=== PATIENT | male | born 1955 | race African-American/Black ===

== ENCOUNTER 2018-01-21 08:29 | Inpatient (IN) | payer MEDICAID ==
[~2018-01-21] VITALS: Ht 180.3 cm; Wt 103.4 kg
[~2018-01-21 08:29] MED LIST: ALBU2.5V13 IH; HYDR-3933 PO; IBUP-2028 PO; METF500T6 PO; METH500T PO; PARO-66 PO; SIMV40TA5 PO; TRAM50TA3 PO
[2018-01-21] MEDS ORDERED: ASPIRIN 81MG TABLET PO ONE (09:00)
[2018-01-21 09:22] LABS: CHLORIDE 107 mEq/L (98-107)
[2018-01-21 09:34] LABS: BASOPHILS % 1.4 % (0.0-2.0); EOSINOPHILS % 2.5 % (0.0-5.0); HEMATOCRIT. 43.8 % (42.0-52.0); HEMOGLOBIN. 14.9 g/dL (14.0-18.0); LYMPHOCYTES % 36.2 % (20.0-50.0); MEAN CORPUSCULAR HEMOGLOBIN 28.4 pg (28.0-32.0); MEAN CORPUSCULAR VOLUME 83.8 fL (80.0-94.0); MEAN PLATELET VOLUME 8.8 fl (7.4-10.4); MONOCYTES % 8.5 % (2.0-8.0); NEUTROPHILS % 51.4 % (40.0-76.0); PLATELET 204 x1000/uL (130-400); RED BLOOD CELL COUNT 5.23 mill/uL (4.7-6.1); RED CELL DISTRIBUTION WIDTH 13.7 % (11.6-14.6)
[2018-01-21 11:25] VITALS: BP 134/67
[2018-01-21] MEDS ORDERED: ENOXAPARIN 40MG/0.4ML SYR SUBCUT SCH (11:30)
[2018-01-21] MEDS ORDERED: CLONIDINE 0.1MG TABLET PO PRN (11:30)
[2018-01-21] MEDS ORDERED: DIPHENHYDRAMINE 50MG/ML VIAL IV PRN (11:30)
[2018-01-21] MEDS ORDERED: DOCUSATE SODIUM 100MG CAPSULE PO PRN (11:30)
[2018-01-21] MEDS ORDERED: ONDANSETRON HCL 4MG/2ML INJ IV PRN (11:30)
[2018-01-21] MEDS ORDERED: NA PHOS,M-B/NA PHOS,DI-BA ENEMA 118ML PR PRN (11:30)
[2018-01-21] MEDS ORDERED: NITROGLYCERIN 0.4MG TABLET SL SL PRN (11:30)
[2018-01-21] MEDS ORDERED: IPRATROPIUM/ALBUTEROL 0.5-3(2.5)MG/3ML NEB INH PRN (11:30)
[2018-01-21] MEDS ORDERED: ACETAMINOPHEN 325MG TABLET PO PRN (11:30)
[2018-01-21] MEDS ORDERED: GUAIFENESIN 200MG/10ML SUGAR FREE UDC PO PRN (11:30)
[2018-01-21] MEDS ORDERED: MAGNESIUM/ALUMINUM HYDROXIDE/SIMETHICONE 30ML UDC PO PRN (11:30)
[2018-01-21] MEDS ORDERED: KETOROLAC 15MG/ML VIAL IV PRN (11:30)
[2018-01-21] MEDS ORDERED: LORAZEPAM 0.5MG TABLET PO PRN (11:30)
[2018-01-21 13:21] VITALS: BP 134/67
[2018-01-21] MEDS: FAMOTIDINE 20MG TABLET PO SCH ×2 (13:58→21:08)
[2018-01-21] MEDS: DILTIAZEM HCL 60MG TABLET PO SCH ×2 (13:58→18:54)
[2018-01-21] MEDS: ENOXAPARIN 30MG/0.3ML SYR SUBCUT SCH ×2 (13:59→21:10)
[2018-01-21 16:00] VITALS: BP 114/77
[2018-01-21 16:56] LABS: CREATINE KINASE MB FRACTION 4.2 ng/mL (0.5-3.6)
[2018-01-21 20:00] VITALS: BP 103/59
[2018-01-21 20:19] LABS: *BARBITURATES SCREEN URINE NEGATIVE (NEGATIVE)
[2018-01-21 20:20] LABS: *AMPHETAMINES SCREEN URINE NEGATIVE (NEGATIVE); *COCAINE SCREEN URINE PRESUMTIVE POSITIVE (NEGATIVE); CANNABINOID URINE SCREEN NEGATIVE (NEGATIVE); METHADONE URINE SCREEN NEGATIVE (NEGATIVE); OPIATES URINE SCREEN PRESUMTIVE POSITIVE (NEGATIVE); PHENCYCLIDINE URINE SCREEN NEGATIVE (NEGATIVE)
[2018-01-21 20:21] LABS: *BENZODIAZEPINES SCREEN URINE NEGATIVE (NEGATIVE)
[2018-01-21] MEDS ORDERED: ATORVASTATIN CALCIUM 20MG TABLET PO SCH (21:00)
[2018-01-21] MEDS ORDERED: ZOLPIDEM TARTRATE 5MG TABLET PO PRN (21:00)
[2018-01-22] VITALS: BP 122/79
[2018-01-22 00:32] LABS: CREATINE KINASE MB FRACTION 3.6 ng/mL (0.5-3.6)
[2018-01-22 04:00] VITALS: BP 113/78
[2018-01-22] MEDS: DILTIAZEM HCL 60MG TABLET PO SCH ×3 (06:00→11:40)
[2018-01-22 08:00] VITALS: BP 112/78
[2018-01-22] MEDS ORDERED: ASPIRIN 325MG EC TABLET PO SCH (09:00)
[2018-01-22] MEDS: FAMOTIDINE 20MG TABLET PO SCH (09:55)
[2018-01-22] MEDS: ENOXAPARIN 30MG/0.3ML SYR SUBCUT SCH (09:55)
[2018-01-22] MEDS ORDERED: FUROSEMIDE 40MG/4ML VIAL IVP NR (10:45)
[2018-01-22] MEDS ORDERED: LIP40 MT (11:42)
[2018-01-22 11:43] VITALS: BP 130/75
[2018-01-22] MEDS ORDERED: ASPI-1159 MT (11:43)
[2018-01-22 12:00] VITALS: BP 133/86
== END 2018-01-22 13:35 | disposition home or self-care (01) | DRG 816 ==
LOC: ER 08:42 → 5WST 09:50 → ENRESERV 10:32
PROVIDERS: ADMIT Internal Medicine; ATTEND Internal Medicine
DX: T40.5X1A Poisoning by cocaine, accidental (unintentional), initial encounter (principal); N17.0 Acute kidney failure with tubular necrosis; E78.5 Hyperlipidemia, unspecified; E11.9 Type 2 diabetes mellitus without complications; I10 Essential (primary) hypertension; J45.909 Unspecified asthma, uncomplicated; F17.210 Nicotine dependence, cigarettes, uncomplicated; E78.00 Pure hypercholesterolemia, unspecified; F14.10 Cocaine abuse, uncomplicated; Y92.89 Other specified places as the place of occurrence of the external cause; Z86.73 Personal history of transient ischemic attack (TIA), and cerebral infarction without residual deficits; Z91.14 Patient's other noncompliance with medication regimen; Z79.899 Other long term (current) drug therapy; Z71.6 Tobacco abuse counseling; Z71.51 Drug abuse counseling and surveillance of drug abuser
CPT/HCPCS: 36415; 71045; 80053; 80061; 80305; 82550; 82553; 83036; 83880; 84484; 85025; 93005; 93970; 99285; J1650; J1885; J1940

== ENCOUNTER 2018-01-31 12:40 | Inpatient (IN) | payer MEDICAID ==
[~2018-01-31] VITALS: Ht 180.3 cm; Wt 103.4 kg
[~2018-01-31 12:40] MED LIST changes: +ASPI-1159 MT; +LIP40 MT; +METF-414 PO; -METF500T6 PO
[2018-01-31] MEDS ORDERED: ALBUTEROL (0.083%) 2.5MG/3ML NEB HHN STA (13:14)
[2018-01-31] MEDS ORDERED: IPRATROPIUM BROMIDE (0.02%) 0.5MG/2.5ML NEB HHN STA (13:14)
[2018-01-31] MEDS ORDERED: ASPIRIN 325MG TABLET PO ONE (13:30)
[2018-01-31] MEDS ORDERED: ASPIRIN 81MG TABLET PO ONE (14:15)
[2018-01-31] MEDS ORDERED: MORPHINE SULFATE 4 MG/ML CPJ (NOT FOR IM USE) IV ONE (14:45)
[2018-01-31 14:53] LABS: BASOPHILS % 1.1 % (0.0-2.0); EOSINOPHILS % 1.9 % (0.0-5.0); HEMOGLOBIN. 14.3 g/dL (14.0-18.0); LYMPHOCYTES % 26.8 % (20.0-50.0); MEAN CORPUSCULAR HEMOGLOBIN 28.2 pg (28.0-32.0); MEAN CORPUSCULAR VOLUME 84.6 fL (80.0-94.0); MEAN PLATELET VOLUME 9.1 fl (7.4-10.4); MONOCYTES % 8.8 % (2.0-8.0); NEUTROPHILS % 61.4 % (40.0-76.0); PLATELET 206 x1000/uL (130-400); RED BLOOD CELL COUNT 5.08 mill/uL (4.7-6.1); RED CELL DISTRIBUTION WIDTH 13.8 % (11.6-14.6)
[2018-01-31 15:00] LABS: INR 1.1; PROTHROMBIN TIME 11.3 sec (9.1-11.1)
[2018-01-31 15:05] LABS: CHLORIDE 111 mEq/L (98-107)
[2018-01-31] MEDS ORDERED: FUROSEMIDE 40MG/4ML VIAL IVP ONE (15:30)
[2018-01-31 20:00] VITALS: BP 140/95
[2018-01-31] MEDS ORDERED: ACETAMINOPHEN 325MG TABLET PO PRN (21:15)
[2018-01-31] MEDS ORDERED: HYDROCODONE/ACETAMINOPHEN 5/325MG TABLET PO PRN (21:15)
[2018-01-31] MEDS ORDERED: ONDANSETRON HCL 4MG/2ML INJ IV PRN (21:15)
[2018-01-31] MEDS ORDERED: ACETAMINOPHEN 650MG/20.3ML UDC GT PRN (21:15)
[2018-01-31] MEDS ORDERED: NA PHOS,M-B/NA PHOS,DI-BA ENEMA 118ML PR PRN (21:15)
[2018-01-31] MEDS ORDERED: IPRATROPIUM/ALBUTEROL 0.5-3(2.5)MG/3ML NEB INH PRN (21:15)
[2018-01-31] MEDS ORDERED: CLONIDINE 0.1MG TABLET PO PRN (21:15)
[2018-01-31] MEDS ORDERED: DOCUSATE SODIUM 100MG CAPSULE PO PRN (21:15)
[2018-01-31] MEDS ORDERED: MAGNESIUM/ALUMINUM HYDROXIDE/SIMETHICONE 30ML UDC PO PRN (21:15)
[2018-01-31] MEDS ORDERED: GUAIFENESIN 200MG/10ML SUGAR FREE UDC PO PRN (21:15)
[2018-01-31] MEDS ORDERED: ACETAMINOPHEN 650MG SUPP PR PRN (21:15)
[2018-01-31] MEDS ORDERED: DIPHENHYDRAMINE 50MG/ML VIAL IV PRN (21:15)
[2018-01-31] MEDS ORDERED: NITROGLYCERIN 0.4MG TABLET SL SL PRN (21:30)
[2018-01-31] MEDS ORDERED: DEXTROSE 50% WATER 50ML SYRINGE IV PRN (21:30)
[2018-01-31] MEDS: ASPIRIN 81MG TABLET PO SCH (21:58)
[2018-01-31] MEDS: HYDROCODONE/ACETAMINOPHEN 10/325MG TABLET PO PRN (22:00)
[2018-01-31] MEDS: METHOCARBAMOL 500MG TABLET PO SCH (22:00)
[2018-01-31] MEDS: ENOXAPARIN 30MG/0.3ML SYR SUBCUT SCH (22:01)
[2018-01-31] MEDS: INSULIN LISPRO 100 UNITS/ML SUBCUT SCH (22:59)
[2018-01-31] MEDS: SODIUM CHLORIDE 0.9% INJ 3ML FLUSH IVF SCH (22:59)
[2018-01-31] MEDS: BLOOD SUGAR DIAGNOSTIC STRIP TEST SCH (22:59)
[2018-01-31 23:17] VITALS: BP 140/95
[2018-02-01] VITALS: BP 153/97
[2018-02-01] MEDS ORDERED: PNEUMOCOCCAL 23-VAL P-SAC VAC 0.5 ML IM ONE (01:00)
[2018-02-01] MEDS: HYDROCODONE/ACETAMINOPHEN 10/325MG TABLET PO PRN ×4 (02:58→21:33)
[2018-02-01 04:00] VITALS: BP 126/86
[2018-02-01] MEDS: SODIUM CHLORIDE 0.9% INJ 3ML FLUSH IVF SCH ×3 (07:01→21:26)
[2018-02-01 07:55] LABS: CLARITY URINE CLEAR (CLEAR); COLOR URINE YELLOW (YELLOW); KETONES URINE TRACE (NEGATIVE); LEUKOCYTE ESTERASE URINE NEGATIVE (NEGATIVE); NITRITE URINE NEGATIVE (NEGATIVE); OCCULT BLOOD URINE NEGATIVE (NEGATIVE); PROTEIN URINE NEGATIVE (NEGATIVE); SPECIFIC GRAVITY URINE 1.024 (1.005-1.030); UROBILINOGEN URINE 0.2 E.U./dL (0.2-1.0)
[2018-02-01 07:56] LABS: BASOPHILS % 1.5 % (0.0-2.0); EOSINOPHILS % 3.4 % (0.0-5.0); HEMATOCRIT. 41.5 % (42.0-52.0); MEAN CORPUSCULAR HEMOGLOBIN 28.6 pg (28.0-32.0); MEAN CORPUSCULAR VOLUME 84.4 fL (80.0-94.0); MEAN PLATELET VOLUME 9.1 fl (7.4-10.4); MONOCYTES % 8.8 % (2.0-8.0); NEUTROPHILS % 44.3 % (40.0-76.0); PLATELET 195 x1000/uL (130-400); RED BLOOD CELL COUNT 4.92 mill/uL (4.7-6.1); RED CELL DISTRIBUTION WIDTH 13.8 % (11.6-14.6)
[2018-02-01 08:00] VITALS: BP 125/80
[2018-02-01 08:22] LABS: *AMPHETAMINES SCREEN URINE NEGATIVE (NEGATIVE); *BARBITURATES SCREEN URINE NEGATIVE (NEGATIVE); *BENZODIAZEPINES SCREEN URINE NEGATIVE (NEGATIVE); *COCAINE SCREEN URINE PRESUMTIVE POSITIVE (NEGATIVE)
[2018-02-01 08:23] LABS: CANNABINOID URINE SCREEN NEGATIVE (NEGATIVE); METHADONE URINE SCREEN NEGATIVE (NEGATIVE); OPIATES URINE SCREEN PRESUMTIVE POSITIVE (NEGATIVE); PHENCYCLIDINE URINE SCREEN NEGATIVE (NEGATIVE)
[2018-02-01] MEDS ORDERED: INFLUENZA VIRUS VACCINE(AFLURIA) 0.5ML SYR IM ONE (09:00)
[2018-02-01] MEDS: METHOCARBAMOL 500MG TABLET PO SCH ×2 (09:19→16:51)
[2018-02-01] MEDS: ASPIRIN 81MG TABLET PO SCH (09:19)
[2018-02-01] MEDS: ENOXAPARIN 30MG/0.3ML SYR SUBCUT SCH ×2 (09:20→21:25)
[2018-02-01] MEDS: FUROSEMIDE 40MG/4ML VIAL IV SCH (09:27)
[2018-02-01 10:00] LABS: CHLORIDE 106 mEq/L (98-107)
[2018-02-01 10:11] LABS: CREATINE KINASE 280 IU/L (39-308); CREATINE KINASE MB FRACTION 4.6 ng/mL (0.5-3.6)
[2018-02-01] MEDS: BLOOD SUGAR DIAGNOSTIC STRIP TEST SCH ×3 (12:20→21:37)
[2018-02-01 12:50] VITALS: BP 111/72
[2018-02-01] MEDS: INSULIN LISPRO 100 UNITS/ML SUBCUT SCH ×3 (12:50→21:00)
[2018-02-01 14:00] LABS: T4 FREE 1.18 ng/dL (0.76-1.46)
[2018-02-01 16:41] VITALS: BP 129/91
[2018-02-01] MEDS: NICOTINE 14MG PATCH TD SCH (16:51)
[2018-02-01 17:38] LABS: CREATINE KINASE MB FRACTION 4.4 ng/mL (0.5-3.6)
[2018-02-01 20:00] VITALS: BP 143/92
[2018-02-01] MEDS ORDERED: ATORVASTATIN CALCIUM 40MG TABLET PO SCH (21:00)
[2018-02-01] MEDS: IPRATROPIUM/ALBUTEROL 0.5-3(2.5)MG/3ML NEB HHN SCH (22:08)
[2018-02-02] VITALS: BP 140/90
[2018-02-02 01:11] LABS: CREATINE KINASE MB FRACTION 4.2 ng/mL (0.5-3.6)
[2018-02-02] MEDS: IPRATROPIUM/ALBUTEROL 0.5-3(2.5)MG/3ML NEB HHN SCH ×3 (02:05→13:13)
[2018-02-02 04:00] VITALS: BP 148/98
[2018-02-02] MEDS: SODIUM CHLORIDE 0.9% INJ 3ML FLUSH IVF SCH (06:19)
[2018-02-02] MEDS: BLOOD SUGAR DIAGNOSTIC STRIP TEST SCH ×2 (06:21→12:18)
[2018-02-02] MEDS: INSULIN LISPRO 100 UNITS/ML SUBCUT SCH ×2 (06:21→12:18)
[2018-02-02] MEDS: HYDROCODONE/ACETAMINOPHEN 10/325MG TABLET PO PRN ×2 (06:41→09:55)
[2018-02-02] MEDS ORDERED: LOSARTAN POTASSIUM 25 MG TABLET PO SCH (07:30)
[2018-02-02 07:47] LABS: CREATINE KINASE MB FRACTION 3.5 ng/mL (0.5-3.6)
[2018-02-02 07:58] VITALS: BP_SYST 101; BP_SYST 133; BP_DIAS 81; BP_DIAS 92
[2018-02-02] MEDS: FUROSEMIDE 40MG/4ML VIAL IV SCH (08:46)
[2018-02-02] MEDS: NICOTINE 14MG PATCH TD SCH (08:54)
[2018-02-02] MEDS: ASPIRIN 81MG TABLET PO SCH (08:54)
[2018-02-02] MEDS: METHOCARBAMOL 500MG TABLET PO SCH (08:54)
[2018-02-02] MEDS: ENOXAPARIN 30MG/0.3ML SYR SUBCUT SCH (08:57)
[2018-02-02] MEDS ORDERED: ASPIRIN 81MG TABLET PO SCH (09:00)
[2018-02-02 12:00] VITALS: BP 127/90
[2018-02-02 14:37] VITALS: BP 127/90
== END 2018-02-02 15:35 | disposition home or self-care (01) | DRG 194 ==
LOC: ER 15:20 → EDBEDREQ 15:41 → 6WST 16:01 → EDBEDREQ 16:03 → ENRESERV 17:28 → 6WST 19:00
PROVIDERS: ADMIT Family Medicine; ATTEND Family Medicine
DX: I13.0 Hypertensive heart and chronic kidney disease with heart failure and stage 1 through stage 4 chronic kidney disease, or unspecified chronic kidney disease (principal); J96.00 Acute respiratory failure, unspecified whether with hypoxia or hypercapnia; E11.22 Type 2 diabetes mellitus with diabetic chronic kidney disease; E78.00 Pure hypercholesterolemia, unspecified; I50.23 Acute on chronic systolic (congestive) heart failure; E78.5 Hyperlipidemia, unspecified; F14.10 Cocaine abuse, uncomplicated; F17.210 Nicotine dependence, cigarettes, uncomplicated; J45.909 Unspecified asthma, uncomplicated; N18.9 Chronic kidney disease, unspecified; Z83.3 Family history of diabetes mellitus; Z86.73 Personal history of transient ischemic attack (TIA), and cerebral infarction without residual deficits; Z91.14 Patient's other noncompliance with medication regimen; Z79.82 Long term (current) use of aspirin; Z79.84 Long term (current) use of oral hypoglycemic drugs; Z79.1 Long term (current) use of non-steroidal anti-inflammatories (NSAID); Z79.899 Other long term (current) drug therapy; Z71.6 Tobacco abuse counseling; E87.8 Other disorders of electrolyte and fluid balance, not elsewhere classified
CPT/HCPCS: 36415; 71045; 80061; 80305; 82550; 82553; 82962; 83036; 83880; 84439; 84443; 84484; 85379; 90686; 93005; 93306; 93970; 94640; 96374; 96375; 99285; J1650; J1940; J2270; J7030; J7620

== ENCOUNTER 2019-04-29 15:57 | Inpatient (IN) | payer MEDICAID ==
[~2019-04-29] VITALS: Ht 181.6 cm; Wt 90.7 kg
[~2019-04-29 15:57] MED LIST changes: +ACET5SOL2 PO; -ASPI-1159 MT; +ASPI-1497 MT; +FURO40TA5 MT; -HYDR-3933 PO; -IBUP-2028 PO; +LOSA25TA26 MT; +METF-815 MT; -METH500T PO; +METH500T6 MT; +POTA20TA82 PO; +SIMV-46 PO; -SIMV40TA5 PO; -TRAM50TA3 PO
[2019-04-29] MEDS ORDERED: METHYLPREDNISOLONE SOD SUCC 125 MG/2 ML VIAL IV STA (17:42)
[2019-04-29] MEDS ORDERED: MORPHINE SULFATE 4 MG/ML CPJ (NOT FOR IM USE) IV STA (17:42)
[2019-04-29] MEDS ORDERED: ONDANSETRON HCL 4MG/2ML INJ IV STA (17:42)
[2019-04-29] MEDS ORDERED: IPRATROPIUM/ALBUTEROL 0.5-3(2.5)MG/3ML NEB HHN ONE (17:45)
[2019-04-29] MEDS ORDERED: LORAZEPAM 2MG/ML CPJ IV ONE ×2 (17:45→21:00)
[2019-04-29] MEDS ORDERED: LEVOFLOXACIN 750MG PREMIX 150 ML IV ONE (17:45)
[2019-04-29 18:04] LABS: BG BASE EXCESS -2.1 mmol/L (-2.0-2.0); BG CARBOXYHEMOGLOBIN 1.8 % (0.5-1.5); BG DEOXYHEMOGLOBIN 3.8 % (0.0-5.0); BG FRACTION INSPIRED OXYGEN 28; BG HCO3 ACT 22.2 mmol/L (22.0-26.0); BG METHEMOGLOBIN 0.2 % (0.0-1.5); BG OXYGEN SATURATION 96.1 % (92.0-98.5); BG OXYHEMOGLOBIN 94.2 % (94.0-97.0); BG PCO2 36.8 mmHg (35.0-45.0); BG PH 7.399 (7.350-7.450); BG PO2 87.2 mmHg (75.0-100.0); BG SAMPLE SITE RIGHT RADIAL; BG TOTAL HEMOGLOBIN 13.6 g/dL (12.0-18.0); BG VENT MODE NASAL CANNULA
[2019-04-29 18:18] LABS: CHLORIDE 110 mEq/L (98-107)
[2019-04-29 18:19] LABS: INR 1.4; PARTIAL THROMBOPLASTIN TIME 28.9 sec (23.4-31.0); PROTHROMBIN TIME 14.5 sec (9.6-11.0)
[2019-04-29 18:20] LABS: EOSINOPHILS % 1.6 % (0.0-5.0); HEMATOCRIT. 39.8 % (42.0-52.0); HEMOGLOBIN. 13.5 g/dL (14.0-18.0); LYMPHOCYTES % 20.1 % (20.0-50.0); MEAN CORPUSCULAR HEMOGLOBIN 28.9 pg (28.0-32.0); MEAN CORPUSCULAR VOLUME 85.5 fL (80.0-94.0); MEAN PLATELET VOLUME 8.2 fl (7.4-10.4); MONOCYTES % 11.2 % (2.0-8.0); NEUTROPHILS % 66.1 % (40.0-76.0); PLATELET 214 x1000/uL (130-400); RED BLOOD CELL COUNT 4.66 mill/uL (4.7-6.1); RED CELL DISTRIBUTION WIDTH 14.7 % (11.6-14.6)
[2019-04-29 18:22] LABS: ETHANOL BLOOD < 10 mg/dL
[2019-04-29] MEDS ORDERED: FUROSEMIDE 40MG/4ML VIAL IVP ONE (20:15)
[2019-04-29 21:11] LABS: CLARITY URINE CLEAR (CLEAR); COLOR URINE YELLOW (YELLOW); KETONES URINE NEGATIVE (NEGATIVE); LEUKOCYTE ESTERASE URINE NEGATIVE (NEGATIVE); NITRITE URINE NEGATIVE (NEGATIVE); OCCULT BLOOD URINE NEGATIVE (NEGATIVE); PH URINE 7.5 (4.5-8.0); PROTEIN URINE NEGATIVE (NEGATIVE); SPECIFIC GRAVITY URINE 1.025 (1.005-1.030)
[2019-04-29 21:24] LABS: *BARBITURATES SCREEN URINE NEGATIVE (NEGATIVE)
[2019-04-29 21:25] LABS: *AMPHETAMINES SCREEN URINE NEGATIVE (NEGATIVE); *BENZODIAZEPINES SCREEN URINE NEGATIVE (NEGATIVE); *COCAINE SCREEN URINE PRESUMTIVE POSITIVE (NEGATIVE); METHADONE URINE SCREEN NEGATIVE (NEGATIVE); OPIATES URINE SCREEN NEGATIVE (NEGATIVE); PHENCYCLIDINE URINE SCREEN NEGATIVE (NEGATIVE)
[2019-04-29 21:26] LABS: CANNABINOID URINE SCREEN PRESUMTIVE POSITIVE (NEGATIVE)
[2019-04-30 00:15] VITALS: BP 148/97
[2019-04-30] MEDS ORDERED: MORPHINE SULFATE 2 MG/ML CPJ (NOT FOR IM USE) IV PRN (01:45)
[2019-04-30] MEDS ORDERED: ACETAMINOPHEN 325MG TABLET PO PRN (01:45)
[2019-04-30] MEDS ORDERED: ONDANSETRON HCL 4MG/2ML INJ IV PRN (01:45)
[2019-04-30] MEDS ORDERED: DEXTROSE 50% WATER 50ML SYRINGE IV PRN (01:45)
[2019-04-30] MEDS ORDERED: IPRATROPIUM/ALBUTEROL 0.5-3(2.5)MG/3ML NEB HHN PRN ×2 (01:45→13:00)
[2019-04-30 04:00] VITALS: BP 143/91
[2019-04-30] MEDS: IPRATROPIUM/ALBUTEROL 0.5-3(2.5)MG/3ML NEB HHN SCH ×4 (05:05→21:09)
[2019-04-30] MEDS: METHYLPREDNISOLONE SOD SUCC 40 MG/ML VIAL IV SCH ×3 (06:14→21:30)
[2019-04-30] MEDS: BLOOD SUGAR DIAGNOSTIC STRIP TEST SCH ×4 (07:34→21:30)
[2019-04-30 08:00] VITALS: BP 120/74
[2019-04-30] MEDS: METHOCARBAMOL 500MG TABLET PO SCH ×2 (08:43→16:42)
[2019-04-30] MEDS: ASPIRIN 81MG EC TABLET PO SCH (08:43)
[2019-04-30] MEDS: PAROXETINE HCL 10MG TABLET PO SCH (08:43)
[2019-04-30] MEDS: METFORMIN HCL 500MG TABLET PO SCH ×2 (08:43→17:59)
[2019-04-30] MEDS: INSULIN LISPRO 100 UNITS/ML SUBCUT SCH ×4 (08:48→21:33)
[2019-04-30] MEDS: LOSARTAN POTASSIUM 25 MG TABLET PO SCH (08:48)
[2019-04-30] MEDS ORDERED: POTASSIUM CHLORIDE 20MEQ TABLET SR PO SCH (09:00)
[2019-04-30] MEDS ORDERED: FUROSEMIDE 40MG TABLET PEG SCH (09:00)
[2019-04-30 10:52] LABS: HEMATOCRIT. 41.1 % (42.0-52.0); HEMOGLOBIN. 13.9 g/dL (14.0-18.0); MEAN CORPUSCULAR HEMOGLOBIN 29.1 pg (28.0-32.0); MEAN CORPUSCULAR VOLUME 85.9 fL (80.0-94.0); MEAN PLATELET VOLUME 8.4 fl (7.4-10.4); PLATELET 209 x1000/uL (130-400); RED BLOOD CELL COUNT 4.78 mill/uL (4.7-6.1); RED CELL DISTRIBUTION WIDTH 15.1 % (11.6-14.6)
[2019-04-30 11:04] LABS: CHLORIDE 105 mEq/L (98-107)
[2019-04-30 11:14] LABS: LDL CHOLESTEROL 96 mg/dL (5-100)
[2019-04-30 11:16] LABS: HDL CHOLESTEROL 30 mg/dL (40-59)
[2019-04-30 12:00] VITALS: BP 155/99
[2019-04-30] MEDS: NICOTINE 14MG PATCH TD SCH (13:03)
[2019-04-30 13:52] LABS: PLATELET ESTIMATE NORMAL
[2019-04-30] MEDS: ENOXAPARIN 40MG/0.4ML SYR SUBCUT SCH (14:58)
[2019-04-30 16:00] VITALS: BP 130/82
[2019-04-30] MEDS: DILTIAZEM HCL 30MG TABLET PO SCH ×2 (16:42→18:00)
[2019-04-30] MEDS: FUROSEMIDE 100MG/10ML VIAL IVP SCH (16:42)
[2019-04-30 16:54] LABS: HEPATITIS B SURFACE ANTIGEN NEGATIVE
[2019-04-30 17:23] LABS: HEPATITIS A AB IGM NEGATIVE (NEGATIVE)
[2019-04-30 20:00] VITALS: BP 143/93
[2019-04-30] MEDS ORDERED: ATORVASTATIN CALCIUM 40MG TABLET PO SCH (21:00)
[2019-04-30] MEDS: BUDESONIDE 0.5MG/2ML NEB HHN SCH (21:08)
[2019-05-01] VITALS: BP 127/70
[2019-05-01] MEDS: DILTIAZEM HCL 30MG TABLET PO SCH ×4 (00:28→17:09)
[2019-05-01] MEDS: IPRATROPIUM/ALBUTEROL 0.5-3(2.5)MG/3ML NEB HHN SCH ×5 (01:07→17:14)
[2019-05-01 04:00] VITALS: BP 147/98
[2019-05-01] MEDS: METHYLPREDNISOLONE SOD SUCC 40 MG/ML VIAL IV SCH ×2 (06:05→13:33)
[2019-05-01] MEDS: FUROSEMIDE 100MG/10ML VIAL IVP SCH ×2 (06:58→17:19)
[2019-05-01] MEDS: BLOOD SUGAR DIAGNOSTIC STRIP TEST SCH ×3 (07:46→17:35)
[2019-05-01 07:54] LABS: HEMOGLOBIN. 14.1 g/dL (14.0-18.0); MEAN CORPUSCULAR VOLUME 86.2 fL (80.0-94.0); MEAN PLATELET VOLUME 8.7 fl (7.4-10.4); PLATELET 243 x1000/uL (130-400); RED BLOOD CELL COUNT 4.88 mill/uL (4.7-6.1); RED CELL DISTRIBUTION WIDTH 15.1 % (11.6-14.6)
[2019-05-01 08:00] VITALS: BP 142/94
[2019-05-01 08:10] LABS: CHLORIDE 102 mEq/L (98-107)
[2019-05-01] MEDS: BUDESONIDE 0.5MG/2ML NEB HHN SCH (08:12)
[2019-05-01] MEDS ORDERED: POTASSIUM CHLORIDE 20MEQ TABLET SR PO SCH (09:00)
[2019-05-01 09:51] LABS: PLATELET ESTIMATE NORMAL
[2019-05-01] MEDS: ASPIRIN 81MG EC TABLET PO SCH (10:08)
[2019-05-01] MEDS: NICOTINE 14MG PATCH TD SCH (10:08)
[2019-05-01] MEDS: METFORMIN HCL 500MG TABLET PO SCH ×2 (10:09→18:35)
[2019-05-01] MEDS: LOSARTAN POTASSIUM 25 MG TABLET PO SCH (10:09)
[2019-05-01] MEDS: PAROXETINE HCL 10MG TABLET PO SCH (10:09)
[2019-05-01] MEDS: METHOCARBAMOL 500MG TABLET PO SCH ×2 (10:09→17:07)
[2019-05-01] MEDS: ENOXAPARIN 40MG/0.4ML SYR SUBCUT SCH (10:11)
[2019-05-01] MEDS: INSULIN LISPRO 100 UNITS/ML SUBCUT SCH ×3 (10:14→17:35)
[2019-05-01 12:00] VITALS: BP 125/70
[2019-05-01 16:00] VITALS: BP 104/51
[2019-05-01] MEDS ORDERED: ALBU2.5V13 IH (16:15)
[2019-05-01] MEDS ORDERED: LOSA50TA41 MT (16:15)
[2019-05-01] MEDS ORDERED: FURO-151 MT (16:15)
[2019-05-01] MEDS ORDERED: FLUT1DIS3 INH (16:15)
[2019-05-01] MEDS ORDERED: CARV12.545 MT (16:15)
[2019-05-01 17:52] VITALS: BP 104/51
== END 2019-05-01 19:30 | disposition home or self-care (01) | DRG 194 ==
LOC: ER 15:57 → 7WST 21:16 → EDBEDREQTM 21:33 → EDBEDREQ 21:35 → ENRESERV 23:24
PROVIDERS: ADMIT Internal Medicine; ATTEND Internal Medicine
DX: I11.0 Hypertensive heart disease with heart failure (principal); I27.20 Pulmonary hypertension, unspecified; E87.8 Other disorders of electrolyte and fluid balance, not elsewhere classified; E44.0 Moderate protein-calorie malnutrition; I50.23 Acute on chronic systolic (congestive) heart failure; J44.1 Chronic obstructive pulmonary disease with (acute) exacerbation; E11.9 Type 2 diabetes mellitus without complications; E78.5 Hyperlipidemia, unspecified; F12.90 Cannabis use, unspecified, uncomplicated; F14.90 Cocaine use, unspecified, uncomplicated; F17.210 Nicotine dependence, cigarettes, uncomplicated; I08.0 Rheumatic disorders of both mitral and aortic valves; I49.3 Ventricular premature depolarization; I42.0 Dilated cardiomyopathy; Z86.73 Personal history of transient ischemic attack (TIA), and cerebral infarction without residual deficits; Z79.899 Other long term (current) drug therapy; Z82.49 Family history of ischemic heart disease and other diseases of the circulatory system; Z83.3 Family history of diabetes mellitus; Z79.82 Long term (current) use of aspirin; Z79.84 Long term (current) use of oral hypoglycemic drugs; Z71.6 Tobacco abuse counseling; Z68.27 Body mass index [BMI] 27.0-27.9, adult
CPT/HCPCS: 36415; 36600; 71045; 72148; 76700; 80048; 80053; 80061; 80305; 80320; 81003; 82375; 82805; 82962; 83036; 83605; 83735; 83880; 84484; 85025; 86705; 86709; 86803; 87340; 93005; 93306; 94640; 96365; 96375; 99291; J1650; J1815; J1940; J1956; J2060; J2270; J2405; J2920; J2930; J7620; J7626; G0480

== ENCOUNTER 2019-08-30 14:30 | Inpatient (IN) | payer MEDICAID ==
[~2019-08-30] VITALS: Ht 180.3 cm; Wt 111.1 kg
[~2019-08-30 14:30] MED LIST changes: +CARV12.545 MT; +FLUT1DIS3 INH; +FURO-151 MT; +LOSA50TA41 MT; -METF-414 PO; -SIMV-46 PO
[2019-08-30] MEDS ORDERED: SODIUM CHLORIDE 0.9% 1,000 ML IV ONE (15:34)
[2019-08-30] MEDS ORDERED: KETOROLAC 15MG/ML VIAL IV ONE (15:45)
[2019-08-30 16:13] LABS: HEMATOCRIT. 40.3 % (42.0-52.0); HEMOGLOBIN. 13.5 g/dL (14.0-18.0); LYMPHOCYTES % 23.8 % (20.0-50.0); MEAN CORPUSCULAR VOLUME 86.5 fL (80.0-94.0); MEAN PLATELET VOLUME 8.5 fl (7.4-10.4); MONOCYTES % 13.8 % (2.0-8.0); NEUTROPHILS % 57.4 % (40.0-76.0); PLATELET 192 x1000/uL (130-400); RED BLOOD CELL COUNT 4.65 mill/uL (4.7-6.1); RED CELL DISTRIBUTION WIDTH 15.9 % (11.6-14.6)
[2019-08-30 16:20] LABS: CHLORIDE 105 mEq/L (98-107)
[2019-08-30 16:22] LABS: INR 1.4; PARTIAL THROMBOPLASTIN TIME 29.1 sec (23.4-31.0); PROTHROMBIN TIME 14.8 sec (9.6-11.0)
[2019-08-30 16:31] LABS: CLARITY URINE CLEAR (CLEAR); COLOR URINE DARK YELLOW (YELLOW); KETONES URINE TRACE (NEGATIVE); LEUKOCYTE ESTERASE URINE TRACE (NEGATIVE); NITRITE URINE NEGATIVE (NEGATIVE); OCCULT BLOOD URINE NEGATIVE (NEGATIVE); PROTEIN URINE TRACE (NEGATIVE); SPECIFIC GRAVITY URINE 1.027 (1.005-1.030)
[2019-08-30] MEDS ORDERED: LEVOFLOXACIN 750MG PREMIX 150 ML IV ONE (16:45)
[2019-08-30] MEDS ORDERED: ACETAMINOPHEN 325MG TABLET PO PRN (18:30)
[2019-08-30] MEDS ORDERED: ONDANSETRON HCL 4MG/2ML INJ IV PRN (18:30)
[2019-08-30] MEDS ORDERED: MAGNESIUM/ALUMINUM HYDROXIDE/SIMETHICONE 30ML UDC PO PRN (18:30)
[2019-08-30] MEDS ORDERED: DOCUSATE SODIUM 100MG CAPSULE PO PRN (18:30)
[2019-08-30] MEDS ORDERED: GUAIFENESIN 200MG/10ML SUGAR FREE UDC PO PRN (18:30)
[2019-08-30] MEDS ORDERED: DIPHENHYDRAMINE 50MG/ML VIAL IV PRN (18:30)
[2019-08-30 19:32] LABS: CHLORIDE 108 mEq/L (98-107)
[2019-08-30] MEDS ORDERED: PIPERACILLIN/TAZ 3.375G PREMIX 50 ML IV ONE (19:45)
[2019-08-30] MEDS ORDERED: SODIUM CHLORIDE 0.9% 1000ML BAG (SEPSIS BOLUS) IV ONE (20:15)
[2019-08-30] MEDS: MORPHINE SULFATE 2 MG/ML CPJ (NOT FOR IM USE) IV PRN (23:33)
[2019-08-31] VITALS: BP 161/80
[2019-08-31] MEDS: HYDROCODONE/ACETAMINOPHEN 5/325MG TABLET PO PRN (00:17)
[2019-08-31] MEDS ORDERED: NA PHOS,M-B/NA PHOS,DI-BA ENEMA 118ML PR PRN (00:17)
[2019-08-31] MEDS: SODIUM CHLORIDE 0.45% 1,000 ML IV SCH ×2 (01:41→21:22)
[2019-08-31 04:00] VITALS: BP 144/104
[2019-08-31] MEDS: MORPHINE SULFATE 2 MG/ML CPJ (NOT FOR IM USE) IV PRN ×3 (04:01→21:29)
[2019-08-31] MEDS: PIPERACILLIN/TAZOBACTAM 3.375 G in DEXT 5% WATER 100 ML IV SCH ×3 (05:30→23:23)
[2019-08-31] MEDS ORDERED: DEXTROSE 50% WATER 50ML SYRINGE IV PRN (05:30)
[2019-08-31] MEDS: BLOOD SUGAR DIAGNOSTIC STRIP TEST SCH ×4 (06:05→21:26)
[2019-08-31] MEDS: INSULIN LISPRO 100 UNITS/ML SUBCUT SCH ×4 (06:26→21:00)
[2019-08-31 07:55] LABS: BASOPHILS % 1.6 % (0.0-2.0); HEMATOCRIT. 44.9 % (42.0-52.0); HEMOGLOBIN. 14.7 g/dL (14.0-18.0); LYMPHOCYTES % 42.2 % (20.0-50.0); MEAN CORPUSCULAR HEMOGLOBIN 28.8 pg (28.0-32.0); MEAN CORPUSCULAR VOLUME 87.9 fL (80.0-94.0); MEAN PLATELET VOLUME 8.9 fl (7.4-10.4); MONOCYTES % 13.6 % (2.0-8.0); NEUTROPHILS % 38.6 % (40.0-76.0); PLATELET 168 x1000/uL (130-400); RED BLOOD CELL COUNT 5.11 mill/uL (4.7-6.1); RED CELL DISTRIBUTION WIDTH 15.9 % (11.6-14.6)
[2019-08-31 08:00] VITALS: BP 142/97
[2019-08-31 08:23] LABS: CHLORIDE 107 mEq/L (98-107)
[2019-08-31 08:31] LABS: LDL CHOLESTEROL 72 mg/dL (5-100)
[2019-08-31 08:33] LABS: HDL CHOLESTEROL 24 mg/dL (40-59)
[2019-08-31 08:34] LABS: T4 FREE 1.22 ng/dL (0.76-1.46)
[2019-08-31] MEDS: CLONIDINE 0.1MG TABLET PO PRN (09:35)
[2019-08-31 12:00] VITALS: BP 153/109
[2019-08-31] MEDS ORDERED: PNEUMOCOCCAL 23-VAL P-SAC VAC 0.5 ML IM ONE (12:00)
[2019-08-31 16:00] VITALS: BP 166/99
[2019-08-31] MEDS: LOSARTAN POTASSIUM 50 MG TABLET PO SCH (17:31)
[2019-08-31] MEDS: CARVEDILOL 12.5MG TABLET PO SCH (17:32)
[2019-08-31 20:00] VITALS: BP 148/98
[2019-09-01] VITALS: BP 140/95
[2019-09-01] MEDS: MORPHINE SULFATE 2 MG/ML CPJ (NOT FOR IM USE) IV PRN ×2 (02:32→17:31)
[2019-09-01 04:00] VITALS: BP 143/90
[2019-09-01] MEDS: PIPERACILLIN/TAZOBACTAM 3.375 G in DEXT 5% WATER 100 ML IV SCH ×3 (05:04→22:11)
[2019-09-01] MEDS: INSULIN LISPRO 100 UNITS/ML SUBCUT SCH ×4 (05:53→21:00)
[2019-09-01] MEDS: BLOOD SUGAR DIAGNOSTIC STRIP TEST SCH ×4 (05:53→21:00)
[2019-09-01 08:00] VITALS: BP 155/106
[2019-09-01] MEDS: LOSARTAN POTASSIUM 50 MG TABLET PO SCH (08:19)
[2019-09-01] MEDS: CARVEDILOL 12.5MG TABLET PO SCH ×2 (08:23→17:29)
[2019-09-01] MEDS: HYDROCODONE/ACETAMINOPHEN 5/325MG TABLET PO PRN ×3 (08:26→22:10)
[2019-09-01 12:00] VITALS: BP 157/121
[2019-09-01] MEDS: CLONIDINE 0.1MG TABLET PO PRN (13:54)
[2019-09-01 16:00] VITALS: BP 139/96
[2019-09-01] MEDS: SODIUM CHLORIDE 0.45% 1,000 ML IV SCH (17:30)
[2019-09-01 20:00] VITALS: BP 147/103
[2019-09-01 20:01] LABS: *BARBITURATES SCREEN URINE NEGATIVE (NEGATIVE)
[2019-09-01 20:02] LABS: *BENZODIAZEPINES SCREEN URINE PRESUMTIVE POSITIVE (NEGATIVE); *COCAINE SCREEN URINE PRESUMTIVE POSITIVE (NEGATIVE); METHADONE URINE SCREEN NEGATIVE (NEGATIVE); OPIATES URINE SCREEN PRESUMTIVE POSITIVE (NEGATIVE); PHENCYCLIDINE URINE SCREEN NEGATIVE (NEGATIVE)
[2019-09-01 20:03] LABS: *AMPHETAMINES SCREEN URINE NEGATIVE (NEGATIVE); CANNABINOID URINE SCREEN PRESUMTIVE POSITIVE (NEGATIVE)
[2019-09-02] VITALS: BP 120/80
[2019-09-02] MEDS: MORPHINE SULFATE 2 MG/ML CPJ (NOT FOR IM USE) IV PRN ×4 (01:38→18:34)
[2019-09-02] MEDS: LORAZEPAM 2MG/ML CPJ IV PRN ×2 (01:50→21:54)
[2019-09-02 04:10] VITALS: BP 131/68
[2019-09-02] MEDS: HYDROCODONE/ACETAMINOPHEN 5/325MG TABLET PO PRN ×3 (04:56→21:54)
[2019-09-02] MEDS: PIPERACILLIN/TAZOBACTAM 3.375 G in DEXT 5% WATER 100 ML IV SCH ×3 (04:59→21:54)
[2019-09-02] MEDS: BLOOD SUGAR DIAGNOSTIC STRIP TEST SCH ×4 (04:59→20:58)
[2019-09-02] MEDS: INSULIN LISPRO 100 UNITS/ML SUBCUT SCH ×4 (05:06→20:58)
[2019-09-02 08:00] VITALS: BP 131/81
[2019-09-02] MEDS: LOSARTAN POTASSIUM 50 MG TABLET PO SCH (08:51)
[2019-09-02] MEDS: CARVEDILOL 12.5MG TABLET PO SCH ×2 (08:51→16:45)
[2019-09-02 12:06] VITALS: BP 145/99
[2019-09-02] MEDS: SODIUM CHLORIDE 0.45% 1,000 ML IV SCH (14:21)
[2019-09-02 16:00] VITALS: BP 152/99
[2019-09-02 21:20] VITALS: BP 156/97
[2019-09-02] MEDS: IPRATROPIUM/ALBUTEROL 0.5-3(2.5)MG/3ML NEB NEB PRN (22:20)
[2019-09-03] MEDS: MORPHINE SULFATE 2 MG/ML CPJ (NOT FOR IM USE) IV PRN ×2 (00:21→06:06)
[2019-09-03] MEDS: LORAZEPAM 2MG/ML CPJ IV PRN ×2 (02:35→09:28)
[2019-09-03] MEDS: HYDROCODONE/ACETAMINOPHEN 5/325MG TABLET PO PRN ×2 (02:36→09:58)
[2019-09-03] MEDS: IPRATROPIUM/ALBUTEROL 0.5-3(2.5)MG/3ML NEB NEB PRN ×2 (03:14→09:03)
[2019-09-03] MEDS: BLOOD SUGAR DIAGNOSTIC STRIP TEST SCH ×2 (05:54→11:45)
[2019-09-03] MEDS: INSULIN LISPRO 100 UNITS/ML SUBCUT SCH ×2 (05:54→12:15)
[2019-09-03] MEDS: PIPERACILLIN/TAZOBACTAM 3.375 G in DEXT 5% WATER 100 ML IV SCH (06:06)
[2019-09-03 08:00] VITALS: BP 120/57
[2019-09-03] MEDS: SODIUM CHLORIDE 0.45% 1,000 ML IV SCH (08:00)
[2019-09-03 08:30] VITALS: BP 163/102
[2019-09-03] MEDS: CARVEDILOL 12.5MG TABLET PO SCH (09:00)
[2019-09-03] MEDS: LOSARTAN POTASSIUM 50 MG TABLET PO SCH (09:00)
[2019-09-03 12:00] VITALS: BP 165/117
[2019-09-03 15:38] VITALS: BP 130/80
[2019-09-04 04:07] LABS: OVA & PARASITE EXAM Final report (.)
== END 2019-09-03 16:05 | disposition home or self-care (01) ==
LOC: ER 14:41 → 5WST 17:30 → ENRESERV 23:08
PROVIDERS: ADMIT Internal Medicine; ATTEND Internal Medicine
DX: K81.9 Cholecystitis, unspecified (principal); N17.0 Acute kidney failure with tubular necrosis; D68.9 Coagulation defect, unspecified; I11.0 Hypertensive heart disease with heart failure; I50.22 Chronic systolic (congestive) heart failure; E88.09 Other disorders of plasma-protein metabolism, not elsewhere classified; E86.0 Dehydration; E11.9 Type 2 diabetes mellitus without complications; F14.10 Cocaine abuse, uncomplicated; K76.0 Fatty (change of) liver, not elsewhere classified; R07.9 Chest pain, unspecified; E78.5 Hyperlipidemia, unspecified; K57.90 Diverticulosis of intestine, part unspecified, without perforation or abscess without bleeding; I25.10 Atherosclerotic heart disease of native coronary artery without angina pectoris; J44.9 Chronic obstructive pulmonary disease, unspecified; Z86.73 Personal history of transient ischemic attack (TIA), and cerebral infarction without residual deficits; Z71.51 Drug abuse counseling and surveillance of drug abuser; Z83.3 Family history of diabetes mellitus; Z79.899 Other long term (current) drug therapy; Z79.82 Long term (current) use of aspirin
CPT/HCPCS: 36415; 71045; 74176; 76705; 80048; 80053; 80061; 80076; 80305; 81003; 82248; 82962; 83605; 83880; 84439; 84443; 84484; 85025; 86850; 86900; 87015; 87045; 87177; 87209; 87427; 87449; 87493; 89055; 90732; 93005; 99291; J1200; J1885; J1956; J2060; J2270; J2543; J7030; J7060

== ENCOUNTER 2023-07-31 16:24 | Emergency (ER) | payer MEDICARE, MEDICAID ==
[~2023-07-31] VITALS: Ht 165.1 cm; Wt 80.0 kg
[~2023-07-31 16:24] MED LIST changes: -ACET5SOL2 PO; +ACET5SOL4 PO; -METF-815 MT; +METF-873 MT; +METH-773 MT; -METH500T6 MT; +PARO-150 PO; -PARO-66 PO; +POTA-205 PO; -POTA20TA82 PO
[2023-07-31 16:27] VITALS: BP 134/74; PULSE 76; RESP 20; TEMP 98; O2SAT 99
[2023-07-31] MEDS ORDERED: PERM60CR4 TP (16:30)
== END 2023-07-31 16:36 | disposition home or self-care (01) ==
LOC: ER 16:24
DX: Z20.7 Contact with and (suspected) exposure to pediculosis, acariasis and other infestations (principal)
CPT/HCPCS: 99282